=== PATIENT | female | born 1995 | race Two or more races ===

== ENCOUNTER 2024-11-03 17:29 | Emergency (ER) | payer OTHER ==
[~2024-11-03] VITALS: Ht 170.2 cm; Wt 100.4 kg
--- NOTE | 2024-11-03 19:05 | ED.PDOC ---
General HPI Comments 28-year-old female presents to ER with complaints of back pain x1 month. Patient reports he started experiencing unprovoked lower lumbar back pain one month ago that got worse x2 weeks prompting her to come to ER for further evaluation. She rates her current pain a 9/10 diffuse to lower lumbar spine with radiation down posterior bilateral legs. States that she has been taking Tylenol for her pain without relief. Patient presents to ER ambulatory on arrival, in mild distress and states she does have intermittent numbness/tingling down posterior bilateral legs. Denies fever, body aches, chills, nausea/vomiting, shortness of breath, chest pain, trauma/falls, abdominal/pelvic pain, lower extremity weakness or any further symptoms/complaints Chief Complaint: Back Pain Time Seen by MD: 18:05 Primary Care Provider: UNKNOWN Reviewed notes: Nurses Notes, Medications, Allergies Allergies: Coded Allergies: NO KNOWN ALLERGIES (Unverified , 11/03/24) Information Source: Patient Mode of Arrival: Ambulatory Past Medical History PAST MEDICAL HISTORY: Asthma, Seizures (EPILEPSY) Surgical History: Cholecystectomy, (X5) EXAMINATION GRADER History: Ovarian Cysts LMP "CURRENT" Family History Family History: Unknown Social History Smoker: Non-Smoker Alcohol: Denies ETOH Use Drugs: Denies Drug Use Lives In: Home Constitutional: denies: chills, diaphoresis, fatigue, fever, malaise, sweats, weakness, others EENTM: denies: blurred vision, double vision, ear bleeding, ear discharge, ear drainage, ear pain, ear ringing, eye pain, eye redness, hearing loss, mouth pain, mouth swelling, nasal discharge, nose bleeding, nose congestion, nose pain, photophobia, tearing, throat pain, throat swelling, voice changes, others Respiratory: denies: cough, hemoptysis, orthopnea, SOB at rest, shortness of breath, SOB with excertion, stridor, wheezing, others Cardiovascular: denies: chest pain, dizzy spells, diaphoresis, Dyspnea on exertion, edema, irregular heart beat, left arm pain, lightheadedness, palpitations, PND, syncope, others Gastrointestinal: denies: abdomen distended, abdominal pain, blood streaked bowels, constipated, diarrhea, dysphagia, difficulty swallowing, hematemesis, melena, nausea, poor appetite, poor fluid intake, rectal bleeding, rectal pain, vomiting, others Genitourinary: reports: others (As stated in HPI) Neurological: reports: others (As stated in HPI) Musculoskeletal: denies: back pain, gout, joint pain, joint swelling, muscle pain, muscle stiffness, neck pain, others Integumetry: denies: bruises, change in color, change in hair/nails, dryness, laceration, lesions, lumps, rash, wounds, others Allergic/Immunocompromised: denies: Difficulty Healing, Frequent Infections, Hives, Itching, others Hematologic/Lymphatic: denies: anemia, blood clots, easy bleeding, easy bruising, swollen glands, others Endocrine: denies: excessive hunger, excessive sweating, excessive thirst, excessive urination, flushing, intolerance to cold, intolerance to heat, unexplained weight gain, unexplained weight loss, others Psychiatric: denies: anxiety, bipolar disorder, depression, hopeless, panic disorder, schizophrenia, sleepless, suicidal, others Physical Exam General Appearance: Mild Distress (Due to pain localized to bilateral lower lumbar paraspinals), Obese HEENT: PERRL/EOMI Neck: Full Range of Motion, Non-Tender, Normal Respiratory: Chest Non-Tender, Lungs Clear, No Accessory Muscle Use, No Respiratory Distress, Normal Breath Sounds Cardiovascular: No Murmur, No Gallop, Regular Rate/Rhythm Breast Exam: Deferred Gastrointestinal: Non Tender, No Pulsatile Mass, Soft Genitalia: Deferred Pelvic: Deferred Rectal: Deferred Extremities: No calf tenderness, Normal capillary refill, Normal range of motion Musculoskeletal : Extremity Location: Back (TTP to bilateral lower lumbar paraspinals noted. No skin changes noted. Gait slow due to pain localized to bilateral lower lumbar paraspinals) Neurologic: Alert, route sales specialist II-XII nml as Tested, No Motor Deficits, No Sensory Deficits Cerebellar Function: Normal Reflexes: Normal Skin: Dry, Normal Color, Warm Peripheral Pulses: 2+ Radial (R), 2+ Radial (L), 2+ Brachial (R), 2+ Brachial (L) Lymphatic: No Adenopathy Was a procedure done? Was a procedure done?: No Sedation Sedation?: No Differential Diagnosis Kidney stone (Female): N/A Urinary Problem (Female): Urinary retention, Urolithiasis, UTI, Other (Fracture, neurovascular injury) X-Ray, Labs, Meds, VS Vital Signs Date Time Temp Pulse Resp B/P (MAP) Pulse Ox O2 Delivery O2 Flow Rate FiO2 11/03/24 18:07 97.9 91 18 127/79 (95) 96 Lab Test 11/03/24 19:18 11/03/24 18:00 Range/Units White Blood Count 6.1 4.4-10.8 10^3/uL Red Blood Count 4.40 4.0-5.20 10^6/uL Hemoglobin 11.9 L 12.2-16.2 g/dL Hematocrit 36.0 36.0-46.0 % Mean Corpuscular Volume 81.9 80.0-100.0 fL Mean Corpuscular Hemoglobin 27.0 L 28.0-32.0 pg Mean Corpuscular Hemoglobin Concent 33.0 32.0-36.0 g/dL Red Cell Distribution Width 16.9 H 11.8-14.3 % Platelet Count 311 140-450 10^3/uL Mean Platelet Volume 8.0 6.9-10.8 fL Neutrophils (%) (Auto) 65.0 37.0-80.0 % Lymphocytes (%) (Auto) 19.7 10.0-50.0 % Monocytes (%) (Auto) 11.1 0.0-12.0 % Eosinophils (%) (Auto) 3.9 0.0-7.0 % Basophils (%) (Auto) 0.3 0.0-2.0 % Neutrophils # (Auto) 4.0 1.6-8.6 10 ^3/uL Lymphocytes # (Auto) 1.2 0.4-5.4 10 ^3/uL Monocytes # (Auto) 0.7 0-1.3 10 ^3/uL Eosinophils # (Auto) 0.2 0-0.8 10 ^3/uL Basophils # (Auto) 0 0-0.2 10 ^3/uL Nucleated Red Blood Cells 0.1 % Sodium Level 141 136-145 mmol/L Potassium Level 3.8 3.5-5.1 mmol/L Chloride Level 108 H 98-107 mmol/L Carbon Dioxide Level 25 20-31 mmol/L Anion Gap 8 5-15 Blood Urea Nitrogen 8 L 9-23 mg/dL Creatinine 0.71 0.550-1.02 mg/dL Glomerular Filtration Rate Calc 118 >90 mL/min BUN/Creatinine Ratio 11.3 10.0-20.0 Serum Glucose 104 74-106 mg/dL Calcium Level 10.1 8.7-10.4 mg/dL Urine Color Light-orange Yellow Urine Clarity Turbid H Clear Urine pH 5.0 5.0-9.0 Urine Specific [place] 1.028 1.001-1.035 Urine Protein 1+ H Negative Urine Ketones Negative Negative Urine Blood 3+ H Negative /uL Urine Nitrite Negative Negative Urine Bilirubin Negative Negative Urine Urobilinogen Normal Negative mg/dL Urine Leukocyte Esterase Trace Negative /uL Urine RBC 14 0 - 4 /hpf Urine Microscopic WBC < 1 0-5 /HPF Urine Squamous Epithelial Cells Many <5 /hpf Urine Bacteria Few H None Seen /hpf Urine Mucus Few None Seen Urine Glucose Normal Normal mg/dL Current Medications Medications (Trade) Dose Ordered Sig/Sweetie Route Start Time Stop Time Status Last Admin Ketorolac Tromethamine (Toradol Injection) 60 mg ONCE ONCE IM 11/03/24 19:00 11/03/24 19:01 DC 11/03/24 19:08 Methylprednisolone Sodium Succinate (Solu Medrol) 125 mg ONCE ONCE IM 11/03/24 19:00 11/03/24 19:01 DC 11/03/24 19:07 PATIENT: BRETT RODRIGUEZ ACCT: [id number] UNIT: [id number] : 1995 LOC: ER ROOM / BED: / AGE / SEX: 28 / F ADM STATUS: REG ER SERVICE [id number] ORDERING PHYSICIAN: VANESA HASSAN PROCEDURE(s): LS2CT - LS SPINE WO CONTRAST REASON: lumbar back pain ORDER NUMBER(s): [id number], ACCESSION NUMBER(s): [id number] CLINICAL HISTORY: lumbar back pain TECHNIQUE: CT of the abdomen and pelvis was performed without intravenous contrast. This exam was performed according to our departmental dose optimization program. Up-to-date CT equipment and radiation dose reduction techniques are utilized as appropriate. CTDI: [CTDIvol] DLP: 1800.94 WID: COMPARISON: None FINDINGS: Lower Thorax: Unremarkable. Liver and Biliary system: Mild hepatomegaly with the right lobe of the liver measuring 18 cm craniocaudal. No definite hepatic lesion. Prior cholecystectomy. No biliary ductal dilatation. Spleen: Mild splenomegaly. Adrenal Glands and Kidneys: Unremarkable. Pancreas and Retroperitoneum: Unremarkable. Aorta and Major Vessels: Unremarkable. Bowel, Mesentery and Peritoneal space: Normal appendix. Normal caliber small and large bowel. No free air or fluid collection. Pelvis: Circumferential bladder wall thickening which is minimally distended. Otherwise unremarkable. Abdominal wall and Osseous Structures: Normal mineralization and alignment. There is no acute fracture. There are 5 yxa-snm-ldyteyz lumbar type vertebral bodies. There is no high-grade neural foraminal or spinal stenosis. The posterior paraspinal soft tissues are intact. IMPRESSION: 1. No noncontrast evidence of acute abnormality. 2. No acute fracture or traumatic malalignment in the lumbar spine. 3. Mild hepatosplenomegaly. ATED BY: ARCHIE EDWARDS MD DICTATED DATE/TIME: 11/03/241950 SIGNED BY: ARCHIE EDWARDS MD SIGNED DATE/TIME: 11/03/241950 CC: Solu-Medrol 125 mg IM ordered Toradol [address] lumbar spine without contrast reviewed CBC and BMP reviewed without any significant abnormalities Urinalysis reviewed-urine leukocyte esterase trace, urine blood 3+ Patient neurovascularly intact and reported improvement in symptoms prior to discharge Advised on rest/ no strenuous activity Advised to follow up with PCP in 1-2 days Patient verbalized understanding and agreeable with current plan of care Advised to return to ER immediately if symptoms worsen Time of 1ST Reevaluation: 19:02 Reevaluation 1ST: N/A Time of 2ND Reevaluation: 20:02 Reevaluation 2ND: Improved Patient Education/Counseling: Diagnosis, Treatment, Prognosis, Need For Follow Up Family Education/Counseling: No Family Present Departure 1 Departure Time of Disposition: 20:04 Impression: Primary Impression: UTI (urinary tract infection) Qualified Codes: N30.01 - Acute cystitis with hematuria Additional Impression: Lumbar strain Qualified Codes: S39.012A - Strain of muscle, fascia and tendon of lower back, initial encounter Disposition: HOME / SELF CARE / HOMELESS Condition: Stable e-Prescriptions Sulfamethoxazole W/Trimethopri (Bactrim Ds Tablet) 1 Tab Tb 1 TAB PO BID for 7 Days, #14 TAB 0 Refills Prov: VANESA HASSAN 11/03/24 Acetaminophen W/ Codeine (Tylenol W/Cod #3) 1 Tab Tb 1 TAB PO Q6HP, #10 TAB 0 Refills Prov: VANESA HASSAN 11/03/24 Methylprednisolone (Medrol Dosepak) 4 Mg Yao 4 MG PO UD, #21 TAB 0 Refills UAD Prov: VANESA HASSAN 11/03/24 Discharged With: Self Critical Care Note Critical Care Time?: No Stability Stability form required: No Heart Score Heart Score: Heart Score Response (Comments) Value History N/A 0 EKG N/A 0 Age N/A 0 Risk Factors N/A 0 Troponin N/A 0 Total 0 VANESA HASSAN Nov 03, 2024 19:05
[2024-11-03] MEDS: methylPREDNISolone SOD SUCC 125 MG/2 ML VL IM ONE (19:07)
[2024-11-03] MEDS: KETOROLAC TROMETH 60MG/2ML VIAL IM ONE (19:08)
[2024-11-03 19:29] LABS: Urine Bacteria FEW /hpf (None Seen); Urine Blood 3+ /uL (Negative); Urine Clarity Turbid (Clear); Urine Color Light-Orange (Yellow); Urine Mucus FEW (None Seen); Urine Protein, UAD 1+ (Negative); Urine Specific Gravity 1.028 (1.001-1.035); Urine Squamous Epithelial Cell MANY /hpf (<5); Urine Urobilinogen Normal (Negative); Urine WBC < 1 /HPF (0-5)
[2024-11-03 19:32] LABS: Basophils # (auto) 0 10 ^3/uL (0-0.2); Basophils % (auto) 0.3 % (0.0-2.0); Eosinophils # (auto) 0.2 10 ^3/uL (0-0.8); Eosinophils % (auto) 3.9 % (0.0-7.0); Hemoglobin 11.9 g/dL (12.2-16.2); Lymphocytes # (auto) 1.2 10 ^3/uL (0.4-5.4); Lymphocytes % (auto) 19.7 % (10.0-50.0); Mean Corpuscular Volume 81.9 fL (80.0-100.0); Monocytes # (auto) 0.7 10 ^3/uL (0-1.3); Monocytes % (auto) 11.1 % (0.0-12.0); Nucleated Red Blood Cells % 0.1 %; Platelet Count (auto) 311 10^3/uL (140-450); Red Cell Distribution Width 16.9 % (11.8-14.3); White Blood Cell 6.1 10^3/uL (4.4-10.8)
[2024-11-03 19:40] LABS: Potassium 3.8 mmol/L (3.5-5.1); Sodium 141 mmol/L (136-145)
[2024-11-03 19:41] LABS: Anion Gap 8 (5-15); Carbon Dioxide 25 mmol/L (20-31)
[2024-11-03 19:42] LABS: Calcium 10.1 mg/dL (8.7-10.4)
[2024-11-03 19:46] LABS: Glucose 104 mg/dL (74-106)
[2024-11-03 19:47] LABS: BUN/Creatinine Ratio 11.3 (10.0-20.0)
--- NOTE | 2024-11-03 19:53 | DVH ---
CLINICAL HISTORY: lumbar back pain TECHNIQUE: CT of the abdomen and pelvis was performed without intravenous contrast. This exam was per formed according to our departmental dose optimization program. Up-to-date CT equipment and radiation dose reduction techniques are utilized as appropriate. CTDI: [CTDIvol] DLP: 1800.94 WID: COMPARISON: None FINDINGS: Lower Thorax: Unremarkable. Liver and Biliary system: Mild hepatomegaly with the right lobe of the liver measuring 18 cm cranioca udal. No definite hepatic lesion. Prior cholecystectomy. No biliary ductal dilatation. Spleen: Mild splenomegaly. Adrenal Glands and Kidneys: Unremarkable. Pancreas and Retroperitoneum: Unremarkable. Aorta and Major Vessels: Unremarkable. Bowel, Mesentery and Peritoneal space: Normal appendix. Normal caliber small and large bowel. No free air or fluid collection. Pelvis: Circumferential bladder wall thickening which is minimally distended. Otherwise unremarkable. Abdominal wall and Osseous Structures: Normal mineralization and alignment. There is no acute fractur e. There are 5 vri-tly-ebuvayt lumbar type vertebral bodies. There is no high-grade neural foraminal or spinal stenosis. The posterior paraspinal soft tissues are intact. IMPRESSION: 1. No noncontrast evidence of acute abnormality. 2. No acute fracture or traumatic malalignment in the lumbar spine. 3. Mild hepatosplenomegaly.
[2024-11-03 19:55] LABS: Blood Urea Nitrogen 8 mg/dL (9-23); Chloride 108 mmol/L (98-107)
[2024-11-03] MEDS: LIDOCAINE 1% HCL (LOCAL ANESTH.) INJ 20ML MDV IJ ONE (20:01)
[2024-11-03] MEDS: cefTRIAXone SOD 1,000 MG VL IM ONE (20:01)
[2024-11-03] MEDS ORDERED: BACDST PO (20:03)
[2024-11-03] MEDS ORDERED: METH4PAK PO (20:03)
[2024-11-03] MEDS ORDERED: ACE3T PO (20:03)
[2024-11-03 20:22] VITALS: BP 127/79; PULSE 91; RESP 18; TEMP 97.9; O2SAT 96
== END 2024-11-03 20:23 | disposition home or self-care (01) ==
LOC: ER 17:29
DX: S39.012A Strain of muscle, fascia and tendon of lower back, initial encounter (principal); N39.0 Urinary tract infection, site not specified; J45.909 Unspecified asthma, uncomplicated; R56.9 Unspecified convulsions; Z90.49 Acquired absence of other specified parts of digestive tract; Z98.890 Other specified postprocedural states; X58.XXXA Exposure to other specified factors, initial encounter; Y93.89 Activity, other specified; Y92.89 Other specified places as the place of occurrence of the external cause; Y99.8 Other external cause status
CPT/HCPCS: 36415; 72131; 80048; 81001; 85025; 96372; 99285; J0696; J1885; J2003; J2919